=== PATIENT | female | born 1995 | race Caucasian/White ===

== ENCOUNTER 2021-02-13 20:53 | Emergency (ER) | payer OTHER, SELFPAY ==
[2021-02-13] MEDS: LORazepam 1 MG TABLET 2 MG PO (21:10)
[2021-02-13 21:22] VITALS: BP 143/112; PULSE 140; RESP 18; TEMP 37.1; O2SAT 95; BMI 29.2
--- NOTE | 2021-02-13 21:28 | ED_ITS ---
HPI - Psych General Chief Complaint: Psychiatric Symptoms Stated Complaint: Crisis Time Seen by Provider: 02/13/21 21:07 Source: patient Mode of arrival: ambulatory Limitations: no limitations History of Present Illness HPI Narrative: Patient's history of substance abuse depression suicidal feeling came to the ER for plain complaining of hopelessness worsening of depression with suicidal ideation with overdose uses opiates and cocaine patient is homeless and supported by her friends . Recently patient been more depressed for last 2 years since her father in her arms after overdose Related Data Home Medications Medication Instructions Recorded Confirmed hydroxyzine HCl 25 mg tablet 1 tab PO QID 02/13/21 02/13/21 ibuprofen 600 mg tablet 1 tab PO BID PRN 02/13/21 02/13/21 nicotine (polacrilex) 4 mg gum 4 mg PO Q2H PRN 02/13/21 02/13/21 nicotine 21 mg/24 hr daily 1 patch TOPICAL DAILY 02/13/21 02/13/21 transdermal patch Allergies Allergy/AdvReac Type Severity Reaction Status Date / Time No Known Allergies Allergy Unverified 02/02/20 19:15 Review of Systems Review of Systems: Yes all other systems are reviewed and are negative [facility] Social History Social History Advance Directives: No Advance Directives Information Provided: No Patient : No Physical Exam Vital Signs: Vital Signs: Last Vital Signs Temp 98.1 F 02/13/21 23:56 Pulse 89 02/13/21 23:56 Resp 16 02/13/21 23:56 BP 104/60 02/13/21 23:56 Pulse Ox 99 02/13/21 23:56 Body Mass Index 29.2 Appearance: Alert. Oriented X3. No acute distress. Eyes: PERRLA, No Nystagmus ENT: Pharynx normal. Oral Mucosa moist Neck: Normal inspection. Neck supple. CVS: Normal heart rate and rhythm. Pulses normal. Respiratory: No respiratory distress. Equal air entry bilateral, no wheezing/rales/rhonchi Abdomen: Soft and nontender. Bowel sounds are present, no mass palpable, no CVA tenderness Skin: Skin warm and dry. Normal skin color. Normal skin turgor. Extremities: No lower extremity edema. No calf tenderness psych: Feels depressed with suicidal feelings, hopelessness, no decision delusion, thought process normal no current plan for SI Neuro: Oriented X 3. No motor deficit. No sensory deficit.No cerebellar signs , cranial nerves II-XII intact MDM - Psych MDM Narrative Medical decision making narrative: Patient history of substance abuse with and depression feels suicidal with plan to overdose herself. Consult care team for evaluation planned for admission Lab Data Attestation: I reviewed the patient's lab results. Result diagrams: 02/13/21 22:50 02/13/21 22:50 Labs: Lab Results 02/13/21 02/13/21 02/13/21 Range/Units 21:33 22:50 22:50 WBC 10.3 (4.8-10.8) X10*3/uL RBC 4.68 (4.20-5.50) X10*6/uL Hgb 13.6 (12.0-16.0) g/dl Hct 39.6 (37-47) % MCV 84.6 (80-98) fL MCH 29.1 (27.0-33.0) pg MCHC 34.3 (31.0-35.0) g/dl RDW 13.0 (11.0-16.0) % Plt Count 260 (160-400) X10*3/uL MPV 8.9 L (9.4-12.3) fL Immature Gran % (Auto) 0.3 (0.0-0.4) % Neut % (Auto) 72.4 (45-73) % Lymph % (Auto) 21.4 (20-40) % [place] % (Auto) 5.0 (2-11) % Eos % (Auto) 0.6 (0-4) % Baso % (Auto) 0.3 (0-2) % Lymph # (Auto) 2.2 (1.2-4.9) X10*3/uL [place] # (Auto) 0.5 (0.1-1.2) X10*3/uL Eos # (Auto) 0.1 (0.0-0.4) X10*3/uL Baso # (Auto) 0.0 (0.0-0.2) X10*3/uL Abs Immat Gran (auto) 0.03 (0.00-0.03) X10*3/uL Absolute Neuts (auto) 7.5 (2.0-8.3) X10*3/uL Absolute Nucleated RBC 0.000 (0.0-0.012) X10*3/uL Nucleated RBC % (auto) 0.0 (0.0-0.2) /100WBC Sodium (135-145) mmol/L Potassium (3.3-5.1) mmol/L Chloride (96-108) mmol/L Carbon Dioxide (22-29) mmol/L Anion Gap (12-20) BUN (9-16) mg/dL Creatinine (0.5-1.4) mg/dL Estim Creat Clear Calc Estimated GFR Random Glucose (60-115) mg/dL Calcium (8.4-10.2) mg/dL Ethyl Alcohol < 10 mg/dL COVID-19 (HEATHER) Negative (Negative) COVID-19 Clin Com See Note 02/13/21 Range/Units 22:50 WBC (4.8-10.8) X10*3/uL RBC (4.20-5.50) X10*6/uL Hgb (12.0-16.0) g/dl Hct (37-47) % MCV (80-98) fL MCH (27.0-33.0) pg MCHC (31.0-35.0) g/dl RDW (11.0-16.0) % Plt Count (160-400) X10*3/uL MPV (9.4-12.3) fL Immature Gran % (Auto) (0.0-0.4) % Neut % (Auto) (45-73) % Lymph % (Auto) (20-40) % [place] % (Auto) (2-11) % Eos % (Auto) (0-4) % Baso % (Auto) (0-2) % Lymph # (Auto) (1.2-4.9) X10*3/uL [place] # (Auto) (0.1-1.2) X10*3/uL Eos # (Auto) (0.0-0.4) X10*3/uL Baso # (Auto) (0.0-0.2) X10*3/uL Abs Immat Gran (auto) (0.00-0.03) X10*3/uL Absolute Neuts (auto) (2.0-8.3) X10*3/uL Absolute Nucleated RBC (0.0-0.012) X10*3/uL Nucleated RBC % (auto) (0.0-0.2) /100WBC Sodium 140 (135-145) mmol/L Potassium 3.9 (3.3-5.1) mmol/L Chloride 107 (96-108) mmol/L Carbon Dioxide 24 (22-29) mmol/L Anion Gap 13 (12-20) BUN 8 L (9-16) mg/dL Creatinine 0.81 (0.5-1.4) mg/dL Estim Creat Clear Calc 92.1 Estimated GFR > 60 Random Glucose 121 H (60-115) mg/dL Calcium 9.6 (8.4-10.2) mg/dL Ethyl Alcohol mg/dL COVID-19 (HEATHER) (Negative) COVID-19 Clin Com Discharge Plan Discharge Clinical Impression: Suicidal ideation, Polysubstance abuse Depression Qualifiers: Depression Type: major depressive disorder Major depression recurrence: recurrent Active/Remission status: currently active Major depression episode severity: severe Psychotic features: without psychotic features Qualified Code(s): F33.2 - Major depressive disorder, recurrent severe without psychotic features Prescriptions: No Action nicotine (polacrilex) 4 mg gum 4 mg PO Q2H PRN (Reason: Nicotine Cravings) RF: 0 nicotine 21 mg/24 hr patch 24 hour 1 patch topical DAILY RF: 0 hydroxyzine HCl 25 mg tablet 1 tab PO QID RF: 0 ibuprofen 600 mg tablet 1 tab PO BID PRN (Reason: Pain) RF: 0
[2021-02-13 21:52] LABS: COVID-19 Test Negative (Negative)
[2021-02-13 22:55] LABS: MANUAL DIFF FLAG NO
[2021-02-13 22:56] LABS: Basophils Percent Auto 0.3 % (0-2); Eosinophils Absolute Auto 0.1 X10*3/uL (0.0-0.4); Eosinophils Percent Auto 0.6 % (0-4); Hematocrit 39.6 % (37-47); Hemoglobin 13.6 g/dl (12.0-16.0); Imm Gran Abs Auto 0.03 X10*3/uL (0.00-0.03); Imm Gran Pct Auto 0.3 % (0.0-0.4); Lymphocytes Absolute Auto 2.2 X10*3/uL (1.2-4.9); Lymphocytes Percent Auto 21.4 % (20-40); Mean Corpuscular HGB Conc 34.3 g/dl (31.0-35.0); Mean Corpuscular Hemoglobin 29.1 pg (27.0-33.0); Mean Corpuscular Volume 84.6 fL (80-98); Mean Platelet Volume 8.9 fL (9.4-12.3); Monocytes Absolute Auto 0.5 X10*3/uL (0.1-1.2); Neutrophils Absolute Auto 7.5 X10*3/uL (2.0-8.3); Neutrophils Percent Auto 72.4 % (45-73); Platelet Count 260 X10*3/uL (160-400); Red Blood Count 4.68 X10*6/uL (4.20-5.50); White Blood Count 10.3 X10*3/uL (4.8-10.8)
[2021-02-13 23:09] LABS: Ethanol < 10 mg/dL
[2021-02-13 23:10] LABS: Anion Gap 13 (12-20); Blood Urea Nitrogen 8 mg/dL (9-16); Calcium 9.6 mg/dL (8.4-10.2); Carbon Dioxide 24 mmol/L (22-29); Chloride 107 mmol/L (96-108); Creatinine Clr Calc Pharmacy 92.1; Estimated Glomerular Filt Rate > 60; Glucose Random 121 mg/dL (60-115); Potassium 3.9 mmol/L (3.3-5.1); Sodium 140 mmol/L (135-145)
--- NOTE | 2021-02-13 23:45 | PC.NURSE ---
Patient calm and quiet, snacking at this time, [facility] referral completed/confirmed no ETA this time, patient will be assessed by care team if [facility] is not available, medication compliant, will continue to monitor.
[2021-02-13 23:56] VITALS: BP 104/60; PULSE 89; RESP 16; TEMP 36.7; O2SAT 99
--- NOTE | 2021-02-14 00:38 | MHC.CARE ---
T/W met with pt. Pt is a 25 year old female who is currently homeless stating she sleeps on friends couches. Pt states she has been using cocaine and heroin daily approximately 3-5 bundles and 100$ worth of cocaine. She reports the friends she stays with also use drugs. Pt endorses worsening depression, she shares that her father two years ago. She endorses passive SI (no plan or intent). I asked her if she ever has any thoughts of a plan, she states not at this moment . Pt states she has never been seen by crisis before. No prior hx of IPLOC, CCS or PHP. She reports one previous admission to [facility]. Pt states she had a therapist but has stopped going. Pt has no children. Has three brothers whom she has limited contact with. her two sisters have no contact with and her mother resides in [place]. Her father whom she was close to two years ago and she has his ashes on her necklace. Pt reports one suicide attempt in 2018 where she ingested a bottle of gabapentin with an intent to , she states she did not go to the hospital. She states she does not feel this way now. Pt struggles to keep herself awake during interview. Pt is falling asleep. She reports her sleep has been poor and appetite has been fair. her eye contact is poor as evidenced by sleeping during interview. Pt reports she was medicated, confirmed by nurse and t/w discussed plan with her. Pt will remain in the ED due to pt's presentation and meet with recovery team tomorrow morning. Pt at this time does meet criteria for an inpatient psychiatric admission, however pt was vague with responses due to being sedated. If needed, pt can be re-evaluated by the CARE team tomorrow.
--- NOTE | 2021-02-14 06:23 | PC.NURSE ---
Patient slept through the night, no distress observed/reported, VSS, disposition is to meet with assistant cross country coach for detox bed search, behavior appropriate, will continue to monitor.
--- NOTE | 2021-02-14 07:08 | PC.NURSE ---
patient appears to remain at rest at present with even unlabored breaths patient appears in no distress
--- NOTE | 2021-02-14 09:01 | MHC.CARE ---
CARE Team followed up with Pt as she was met with the prior evening by CARE Team. Pt is interested in going to detox for substance use. CARE Team to assist recovery team in detox referrals.
== END 2021-02-14 14:16 | disposition home or self-care (01) ==
PROVIDERS: Emergency Provider Internal Medicine
DX: F33.1 Major depressive disorder, recurrent, moderate (principal); R45.851 Suicidal ideations; Z79.899 Other long term (current) drug therapy
CPT/HCPCS: 36415; 80048; 82077; 85025; 87635; 99283; 99284

== ENCOUNTER 2021-05-11 06:52 | Emergency (ER) | payer OTHER, SELFPAY | END 2021-05-11 08:21 | disposition left against medical advice (07) | PROVIDERS: Emergency Provider Emergency Medicine | DX: L02.91 Cutaneous abscess, unspecified (principal) ==

== ENCOUNTER 2021-06-13 15:38 | Emergency (ER) | payer OTHER, SELFPAY ==
[2021-06-13 16:42] VITALS: BP 142/90; PULSE 122; RESP 18; TEMP 36.8; O2SAT 97; BMI 22.4
== END 2021-06-13 16:49 | disposition left against medical advice (07) ==
PROVIDERS: Emergency Provider Emergency Medicine
DX: F11.20 Opioid dependence, uncomplicated (principal); F41.9 Anxiety disorder, unspecified
CPT/HCPCS: 99281

== ENCOUNTER 2021-09-07 19:33 | Emergency (ER) | payer MEDICAID, SELFPAY ==
[2021-09-07 19:42] VITALS: BP 109/71; BP 128/82; PULSE 112; PULSE 99; RESP 18; TEMP 37; O2SAT 100; BMI 21.4
[2021-09-07 20:00] VITALS: BP 109/71; PULSE 99; RESP 18; O2SAT 100
--- NOTE | 2021-09-07 21:32 | PC.NURSE ---
nazario and vinita notified to hold on bloodwork per provider.
[2021-09-07] MEDS: cloNIDine HCL 0.1 MG TABLET 0.3 MG PO (21:43)
[2021-09-07] MEDS: cephALEXin 500 MG CAPSULE PO (21:43)
[2021-09-07] MEDS: Lidocaine HCl 1 % MPF 5 ML VIAL INFILTRATI ×2 (22:07)
--- NOTE | 2021-09-07 22:09 | ED_ITS ---
HPI - Skin/Abscess/Foreign Bdy General Chief complaint: Skin/Abscess/Foreign Body Stated complaint: Abscess Time Seen by Provider: 09/07/21 20:36 Source: patient Mode of arrival: ambulatory Limitations: no limitations History of Present Illness HPI narrative: 26-year-old female who was in police custody who presents emergency department for evaluation of multiple abscesses to her arms. The the patient states that she injected cocaine into her right forearm 3 days prior. She also injected cocaine into her left arm. The patient states that over the past several days she has developed redness, swelling and pain in these injection site areas. She states that the painful areas on her left are been draining pus, the 1 on her right forearm however has gotten larger and red and has not drained. She denied fever, chills, fatigue, nausea and vomiting. The patient was arrested today and is in police custody. She states that she feels like she is withdrawing from heroin and is requesting clonidine. Related Data Home Medications Medication Instructions Recorded Confirmed hydroxyzine HCl 25 mg tablet 1 tab PO QID 02/13/21 02/13/21 ibuprofen 600 mg tablet 1 tab PO BID PRN 02/13/21 02/13/21 nicotine (polacrilex) 4 mg gum 4 mg PO Q2H PRN 02/13/21 02/13/21 nicotine 21 mg/24 hr daily 1 patch TOPICAL DAILY 02/13/21 02/13/21 transdermal patch Previous Rx's Medication Instructions Recorded cephalexin 500 mg capsule 500 mg PO TID 7 Days #21 cap 09/07/21 doxycycline hyclate 100 mg tablet 100 mg PO Q12H 7 Days #14 tab 09/07/21 ibuprofen 600 mg tablet 600 mg PO Q6H PRN #30 tab 09/07/21 Allergies Allergy/AdvReac Type Severity Reaction Status Date / Time No Known Allergies Allergy Verified 09/07/21 19:42 Review of Systems Review of Systems: Yes all other systems are reviewed and are negative [facility] Past Medical History [facility] Narrative: Social history: She does smoke cigarettes. She denies alcohol use. She injects both heroin and cocaine daily. Medical History Opiate dependence Social History Social History Alcohol intake: never Patient Tobacco Use Status: Current everyday Tobacco user Smoked in Last 30 Days: Yes Use of substances other than those prescribed or required for medical reasons: Yes Substance Use Type: Crack/Cocaine Substance Use Frequency: Chronic Longstanding Last Used Substance: Days (ago) Any prior treatment program specific to substance use: Yes Advance Directives: No Advance Directives Information Provided: No Patient : No Physical Exam Vital Signs: Vital Signs: Last Vital Signs Temp 98.6 F 09/07/21 19:42 Pulse 99 09/07/21 20:00 Resp 18 09/07/21 20:00 BP 109/71 09/07/21 20:00 Pulse Ox 100 09/07/21 20:00 BMI result Body Mass Index 21.4 Const: General: cooperative HEENT: Head: Yes normocephalic and Yes atraumatic Ears: external ears normal Resp: Effort & Inspection: normal respiratory effort Skin: Other: The patient has a 3 x 3 cm abscess to the right forearm with surrounding erythema with increased warmth, the abscess is flocculent. The patient has 3 smaller abscesses on the left forearm which appear to have drained and have a the cicatrix in the center of each or abscess. There is no erythema or increased warmth around these 3 abscesses. Course Course Course Narrative: 26-year-old female who presents emergency department for evaluation an abscess to the right arm as well as 3 small abscesses of the left arm which do not need to be drained. The right arm abscess was incised and drained and approximately 10 cc of purulent material was drained from the abscess, the abscess was packed with quarter-inch gauze. The patient was given doxycycline 100 mg orally and Keflex 500 mg orally here in the emergency department. She was given printed prescriptions to fill since she is police custody. The patient is medically cleared for police custody. Procedures Abscess I/D Site: upper extremity Side (if applicable): right Local Anesthetic: lidocaine 1% Amount of anesthesia used (mL): 5 Technique: incised with blade (#11 Scalpel ) Amount of fluid expressed (mL): 10 Sent for culture/gram staining?: No Irrigation: No Packing used?: plain (1/4 inch) Discharge Plan Discharge Clinical Impression: Encounter for incision and drainage procedure Abscess of skin or subcutaneous tissue Qualifiers: Site of cutaneous abscess of extremity: upper extremity Laterality: right Patient Disposition: Home, Self-Care Instructions: Abscess (ED), Abscess Incision and Drainage (DC) Additional Instructions: The abscess on your right arm was incised, drained and packed with gauze. The packing needs to stay in for 4 days and then you can remove it. If the packing falls out before 4 days it does not need to be put back in. Take doxycycline 100 mg pills, 1 pill twice a day for 7 days. Take Keflex (cephalexin) 500 mg pills, 1 pill 3 times a day for 7 days. Take ibuprofen 600 mg pills, 1 pills every 6 hours as needed for pain. Follow-up with your doctor in 2 days. Please return to the emergency department if your symptoms get worse or if you develop any symptoms that are concerning to you. Prescriptions: New cephalexin 500 mg capsule 500 mg PO TID 7 Days Qty: 21 0RF ibuprofen 600 mg tablet 600 mg PO Q6H PRN (Reason: pain) Qty: 30 0RF doxycycline hyclate 100 mg tablet 100 mg PO Q12H 7 Days Qty: 14 0RF No Action nicotine (polacrilex) 4 mg gum 4 mg PO Q2H PRN (Reason: Nicotine Cravings) 0RF nicotine 21 mg/24 hr patch 24 hour 1 patch topical DAILY 0RF hydroxyzine HCl 25 mg tablet 1 tab PO QID 0RF ibuprofen 600 mg tablet 1 tab PO BID PRN (Reason: Pain) 0RF
--- NOTE | 2021-09-07 22:15 | PC.NURSE ---
rn in room w provider, rupal right forearm drained and bandaged. pt tolerated well.
--- NOTE | 2021-09-07 22:16 | PC.NURSE ---
pt a&ox3, vss, medicated per provider order. rn in room w provider, abscess right forearm drained and bandaged. pt tolerated well. pt requesting food and drink - provided w tara edward and sandwich.
== END 2021-09-07 22:28 | disposition home or self-care (01) ==
PROVIDERS: Emergency Provider Emergency Medicine Emergency Medical Services
DX: L02.413 Cutaneous abscess of right upper limb (principal); L02.414 Cutaneous abscess of left upper limb; F11.13 Opioid abuse with withdrawal; F14.10 Cocaine abuse, uncomplicated; F17.200 Nicotine dependence, unspecified, uncomplicated; Z71.6 Tobacco abuse counseling; Z79.899 Other long term (current) drug therapy
CPT/HCPCS: 10060; 99284

== ENCOUNTER 2021-09-09 00:06 | Emergency (ER) | payer MEDICAID, SELFPAY ==
[2021-09-09 00:07] VITALS: BP 110/70; BP 118/69; PULSE 96; PULSE 97; RESP 18; TEMP 37.1; O2SAT 100; O2SAT 97; BMI 21.4
--- NOTE | 2021-09-09 00:23 | ED_ITS ---
HPI - Nausea/Vomiting/Diarrhea General Chief complaint: General Medical Stated complaint: sob Time Seen by Provider: 09/09/21 00:20 History of Present Illness HPI Narrative: Patient is a 26-year-old female with a long history of polysubstance abuse. Used heroin up to approximately 3 days ago. Has abscesses in her arms that was drained yesterday. Presented today because she had nausea vomiting. Generalized body ache after not having heroin for 3 days. Feels nauseous. Had diarrhea. Has anxiety. Feel very weak. Patient is currently under police custody Related Data Home Medications Medication Instructions Recorded Confirmed hydroxyzine HCl 25 mg tablet 1 tab PO QID 02/13/21 02/13/21 ibuprofen 600 mg tablet 1 tab PO BID PRN 02/13/21 02/13/21 nicotine (polacrilex) 4 mg gum 4 mg PO Q2H PRN 02/13/21 02/13/21 nicotine 21 mg/24 hr daily 1 patch TOPICAL DAILY 02/13/21 02/13/21 transdermal patch Previous Rx's Medication Instructions Recorded cephalexin 500 mg capsule 500 mg PO TID 7 Days #21 cap 09/07/21 doxycycline hyclate 100 mg tablet 100 mg PO Q12H 7 Days #14 tab 09/07/21 ibuprofen 600 mg tablet 600 mg PO Q6H PRN #30 tab 09/07/21 ondansetron 4 mg disintegrating 4 mg PO TID PRN 5 Days #10 tab 09/09/21 tablet Allergies Allergy/AdvReac Type Severity Reaction Status Date / Time No Known Allergies Allergy Verified 09/07/21 19:42 Review of Systems Review of Systems: Positive nausea vomiting, positive diffuse body ache. PENDING SALE TO [facility] Past Medical History Attestation statement: The following information was validated with the patient. Medical History Opiate dependence Social History Social History Alcohol intake: never Patient Tobacco Use Status: Current everyday Tobacco user Substance Use Type: Crack/Cocaine Patient : No Physical Exam Vital Signs: Vital Signs: Last Vital Signs Temp 98.7 F 09/09/21 00:07 Pulse 97 09/09/21 00:07 Resp 18 09/09/21 00:07 BP 118/69 09/09/21 00:07 Pulse Ox 97 04/25/22 00:07 BMI result Body Mass Index 21.4 Appearance: Alert. Oriented X3. No acute distress. Eyes: Pupils equal, round and reactive to light. ENT: Pharynx normal. Neck: Normal inspection. Neck supple. No lymph nodes noted. No crepitus CVS: Normal heart rate and rhythm. Pulses normal. Normal S1 and S2 Respiratory: No respiratory distress. Breath sounds normal. No Wheezing. No rales Abdomen: Soft and nontender. No rigidity. No distention. good BS x4 Skin: Positive skin lesions over the right forearm. The abscess is already drained. Wound is in the attack. There is minimal redness no fluctuance Extremities: No lower extremity edema. Neurovascular intact to all extremities. No Lacerations. No Rash Neuro: Oriented X 3. No motor deficit. No sensory deficit. Moving all extermities. No slurred speech MDM - Nausea/Vomiting/Diarrhea MDM Narrative Medical decision making narrative: Patient had not used heroin for 3 days. Positive nausea vomiting positive generalized malaise. Will go ahead and give medication for anxiety. Also give Zofran for nausea. Likely related to withdrawal. Patient is in stable condition. Medical Records Attestation: I reviewed the patient's medical records. Lab Data Attestation: I reviewed the patient's lab results. Discharge Plan Discharge Clinical Impression: Opiate withdrawal Patient Disposition: Home, Self-Care Instructions: Narcotic Withdrawal (ED) Prescriptions: New ondansetron 4 mg tablet,disintegrating 4 mg PO TID PRN (Reason: nausea and vomiting) 5 Days Qty: 10 0RF No Action nicotine (polacrilex) 4 mg gum 4 mg PO Q2H PRN (Reason: Nicotine Cravings) 0RF nicotine 21 mg/24 hr patch 24 hour 1 patch topical DAILY 0RF hydroxyzine HCl 25 mg tablet 1 tab PO QID 0RF ibuprofen 600 mg tablet 1 tab PO BID PRN (Reason: Pain) 0RF cephalexin 500 mg capsule 500 mg PO TID 7 Days Qty: 21 0RF ibuprofen 600 mg tablet 600 mg PO Q6H PRN (Reason: pain) Qty: 30 0RF doxycycline hyclate 100 mg tablet 100 mg PO Q12H 7 Days Qty: 14 0RF Referrals: [facility] [Provider Group] - 2 days
[2021-09-09] MEDS: Ondansetron ODT 4 MG TAB.RAPDIS TRANSLINGU (00:33)
[2021-09-09] MEDS: cloNIDine HCL 0.1 MG TABLET PO (00:33)
[2021-09-09] MEDS: LORazepam 1 MG TABLET PO (00:33)
[2021-09-09 02:00] VITALS: BP 107/69; RESP 16
--- NOTE | 2021-09-09 02:19 | PC.NURSE ---
pt had gingerale and crackers and no longer vomiting. pt is calm and follows commands.
== END 2021-09-09 02:29 | disposition home or self-care (01) ==
LOC: HO.ED 00:41
PROVIDERS: Emergency Provider Emergency Medicine Emergency Medical Services
DX: F11.23 Opioid dependence with withdrawal (principal); R06.02 Shortness of breath; Z71.51 Drug abuse counseling and surveillance of drug abuser; Z79.899 Other long term (current) drug therapy
CPT/HCPCS: 99283; 99284

== ENCOUNTER 2022-02-01 23:11 | Emergency (ER) | payer OTHER, SELFPAY ==
[2022-02-01 23:30] VITALS: BP 141/70; PULSE 126; RESP 18; TEMP 37.1; O2SAT 95; BMI 21.4
== END 2022-02-02 01:39 | disposition left against medical advice (07) ==
PROVIDERS: Emergency Provider Emergency Medicine
DX: F11.10 Opioid abuse, uncomplicated (principal); Z71.51 Drug abuse counseling and surveillance of drug abuser
CPT/HCPCS: 99282